=== PATIENT | male | born 1955 | race American Indian/Alaskan Native ===

== ENCOUNTER 2017-10-07 10:20 | Emergency (ER) | payer BC, OTHER ==
[2017-10-07 10:20] VITALS: BMI 39.3
[2017-10-07 10:33] VITALS: TEMP 98.3
--- NOTE | 2017-10-07 10:52 | C.PDOC ---
History Of Present Illness 62M c/o sensation of fb in throat after eating peanuts last night. he says he felt as if a chunk of peanut became stuck. this morning he drank water and ate a croissant and says the sensation now has moved lower. denies any choking, pain , or sob. denies any pmh, drugs, etoh. Time Seen by Provider: 10/07/17 10:35 Chief Complaint (Nursing): ENT Problem Past Medical History Vital Signs: Last Vital Signs Temp 98.3 F 10/07/17 10:29 Pulse 90 10/07/17 10:29 Resp 16 10/07/17 10:29 BP 165/88 H 10/07/17 10:29 Pulse Ox 98 10/07/17 10:52 - Medical History PMH: Arthritis, Bronchitis - [facility] Procedures TETANUS TOXOID ADMINIST (04/08/13) Family History: States: Other Other Family History: nc - Social History Hx Tobacco Use: No Hx Alcohol Use: No Hx Substance Use: No - Immunization History Hx Tetanus Toxoid Vaccination: No Hx Influenza Vaccination: No Hx Pneumococcal Vaccination: No Review Of Systems Constitutional: Negative for: Fever, Chills Cardiovascular: Negative for: Chest Pain Respiratory: Negative for: Cough, Shortness of Breath Gastrointestinal: Negative for: Nausea, Vomiting, Abdominal Pain Neurological: Negative for: Weakness, Numbness, Headache Physical Exam - Physical Exam Appears: Well, Non-toxic, No Acute Distress Skin: Warm, Dry Eye(s): bilateral: PERRL Oral Mucosa: Moist Tongue: No Swelling, No Lesions Lips: No Swelling, No Lesions Throat: No Erythema, No Exudate, No Drooling, No Mass Neck: Normal ROM, Supple Cardiovascular: Rhythm Regular Respiratory: No Decreased Breath Sounds, No Accessory Muscle Use Neurological/Psych: Oriented x3 ED Course And Treatment O2 Sat by Pulse Oximetry: 98 Medical Decision Making Medical Decision Makinam disc w Dr Booth- he can do egd tomorrow if pt wants to stay or he can see in his office tomorrow as outpt. he also rec trying some glucagon however the pt says he is feeling better and does not want any medication. he would rather follow up in office tomorrow. he is tolerating po well in the ED therefore I think this is reasonable. return precautions advised. Disposition - Disposition Referrals: Trinidad Booth [Staff Provider] - [facility] [Outside] Disposition: HOME/ ROUTINE Disposition Time: 11:58 Condition: STABLE Additional Instructions: Please call the GI doctor tomorrow to make an appointment. Please also follow up with a primary doctor. The clinic number is provided. Return to the ER for any worsening symptoms or for any other concerns. Prescriptions: Famotidine/Ca Carb/Mag Hydrox [Pepcid Complete Tablet Chew] 1 each PO DAILY #14 tab.chew Instructions: Gastroesophageal Reflux Disease (ED) Forms: [facility] [employer] [facility] (Kiswahili) - Clinical Impression Clinical Impression: Sensation of foreign body in esophagus
[2017-10-07] MEDS ORDERED: Glucagon Recombinant 1 mg Inj IV STA (11:54)
[2017-10-07 12:03] VITALS: BP 145/85; PULSE 79; RESP 18; O2SAT 97
== END 2017-10-07 12:09 | disposition home or self-care (01) ==
LOC: C.ER 10:20
DX: R19.8 Other specified symptoms and signs involving the digestive system and abdomen (principal)

== ENCOUNTER 2018-04-21 15:59 | Emergency (ER) | payer BC ==
[2018-04-21 15:59] VITALS: BMI 39.3
[2018-04-21 16:06] VITALS: BP 181/84; PULSE 89; RESP 20; TEMP 98.8; O2SAT 100
--- NOTE | 2018-04-21 16:27 | C.PDOC ---
History Of Present Illness 63 year old male with PMHx of gout presents to the ED c/o left knee pain and swelling that started 6 days ago. Patient reports initially both knees were swollen but his right knee went down. Patient has been taking Motrin 600 at home. Patient denies injury, fall, trauma, weakness, numbness. Time Seen by Provider: 04/21/18 16:12 Chief Complaint (Nursing): Lower Extremity Problem/Injury History Per: Patient History/Exam Limitations: no limitations Onset/Duration Of Symptoms: Days (6) Current Symptoms Are (Timing): Still Present Recent travel outside of the [place]: No Additional History Per: Patient - Knee Description Of Injury: Other (Gout) Alleviating Factor(s): OTC Pain Medication Past Medical History Reviewed: Historical Data, Nursing Documentation, Vital Signs Vital Signs: Last Vital Signs Temp 98.8 F 04/21/18 16:03 Pulse 89 04/21/18 16:03 Resp 20 04/21/18 16:03 BP 181/84 H 04/21/18 16:03 Pulse Ox 100 04/21/18 16:56 - Medical History PMH: Arthritis, Bronchitis Other PMH: Gout Surgical History: No Surg Hx - [facility] Procedures TETANUS TOXOID ADMINIST (04/08/13) Family History: States: Unknown Family Hx - Social History Hx Tobacco Use: No Hx Alcohol Use: No Hx Substance Use: No - Immunization History Hx Tetanus Toxoid Vaccination: No Hx Influenza Vaccination: No Hx Pneumococcal Vaccination: No Review Of Systems Constitutional: Negative for: Fever, Chills Cardiovascular: Negative for: Chest Pain Respiratory: Negative for: Shortness of Breath Gastrointestinal: Negative for: Abdominal Pain Musculoskeletal: Positive for: Other (left knee swelling) Skin: Negative for: Rash Neurological: Negative for: Weakness, Numbness Physical Exam - Physical Exam Appears: Non-toxic, No Acute Distress Skin: Normal Color, Warm, Dry Head: Atraumatic, Normacephalic Eye(s): bilateral: Normal Inspection Oral Mucosa: Moist Neck: Normal ROM, Supple Extremity: Normal ROM (FAROM left knee), No Tenderness, No Calf Tenderness, Capillary Refill (< 2 seconds), Swelling (mild swelling left knee subpatellar. ) , Other (Left knee: no tactile warmth or erythema or other skin changes ) Extremity: Right: Atraumatic, Normal Color And Temperature, Normal ROM Neurological/Psych: Oriented x3, Normal Speech Disoriented To: Person ED Course And Treatment O2 Sat by Pulse Oximetry: 100 (ON RA) Pulse Ox Interpretation: Normal Medical Decision Making Medical Decision Making: Impression: gout related left knee pain and swelling Plan: * Toradol 60 mg IM * Left knee X-Ray Prior records reviewed and patient has been evaluated for similar presentation of knee pain Xray shows arthritic changes and mild effusion On re-eval, the patient reports pain is mildly improving. He does not have fever , stiff joint, erythema or tactile warmth to suggest septic joint. Patient is ambulatory without difficultly. Recommends rest and analgesics. Rx given Disposition Counseled Patient/Family Regarding: Diagnosis, Need For Followup, Rx Given - Disposition Referrals: Robson Hirsch MD [Staff Provider] - [facility] [Outside] Disposition: HOME/ ROUTINE Disposition Time: 16:53 Condition: GOOD Additional Instructions: Please follow up with your primary doctor for further care Xray shows arthritis and joint effusion Please apply ice to area 15 minutes three times a day. Take Motrin as needed for pain every 6 hours, with food to not upset stomach. Take Tramadol for more severe pain Follow up with orthopedic if pain persists over one week. Prescriptions: Colchicine [Mitigare] 0.6 mg PO DAILY #10 capsule Ibuprofen [Motrin] 600 mg PO Q8 #30 tab traMADol [Ultram] 50 mg PO Q8 PRN #20 tab PRN Reason: Pain, Severe (8-10) Instructions: Knee Pain (DC) Forms: [facility] (Kazakh) - POA Present On Arrival: None - Clinical Impression Clinical Impression: Gouty arthritis, Knee effusion, left - PA / CHARGING OPERATOR / Resident Statement MD/DO has reviewed & agrees with the documentation as recorded. - Scribe Statement The provider has reviewed the documentation as recorded by the Scribe Kailash Bass All medical record entries made by the Janieibe were at my direction and personally dictated by me. I have reviewed the chart and agree that the record accurately reflects my personal performance of the history, physical exam, medical decision making, and the department course for this patient. I have also personally directed, reviewed, and agree with the discharge instructions and disposition.
--- NOTE | 2018-04-21 16:47 | RAD ---
PROCEDURE: Left Knee Radiographs. HISTORY: Pain. COMPARISON: None. FINDINGS: BONES: No evidence of acute fracture. JOINTS: Moderate osteoarthritic changes are noted. JOINT EFFUSION: Suspicious for small suprapatellar joint effusion. OTHER FINDINGS: None. IMPRESSION: Moderate osteoarthritic changes and joint effusion.
== END 2018-04-21 16:58 | disposition home or self-care (01) ==
LOC: C.ER 15:59
DX: M10.9 Gout, unspecified (principal); M25.462 Effusion, left knee
CPT/HCPCS: 73562; 96372; 99284; J1885